=== PATIENT | male | born 1950 | race Caucasian/White ===

== ENCOUNTER → 2019-06-18 | Outpatient (CLI) | payer OTHER ==
[~2019-06-18] VITALS: Ht 185.4 cm; Wt 106.6 kg
[~2019-06-18] MED LIST: ALLOPURINOL 30300 M1 PO; ASPIRIN325 PO; HYDROCHLOROTHIA25 M1 PO; PRINIVIL20 M1 PO; WELLBUTRIN XL150 MG PO
== END | disposition home or self-care (01) ==
LOC: GI 10:56
DX: Z12.11 Encounter for screening for malignant neoplasm of colon (principal); K64.8 Other hemorrhoids; G47.30 Sleep apnea, unspecified; I10 Essential (primary) hypertension; Z96.652 Presence of left artificial knee joint; Z98.890 Other specified postprocedural states
CPT/HCPCS: 62110; 62900

== ENCOUNTER → 2020-04-28 | Outpatient (CLI) | payer OTHER | LOC: CAT 08:52 | PROVIDERS: ATTEND Family Medicine | DX: Z13.6 Encounter for screening for cardiovascular disorders (principal); I25.10 Atherosclerotic heart disease of native coronary artery without angina pectoris; E78.00 Pure hypercholesterolemia, unspecified ==